=== PATIENT | female | born 1955 | race Caucasian/White ===

== ENCOUNTER 2020-11-20 12:25 | Inpatient (IN) ==
[2020-11-20] MEDS ORDERED: IOPAMIDOL 100 ML BOTTLE IV ONE (12:26)
[2020-11-20] MEDS ORDERED: PANTOPRAZOLE 40 MG VIAL IV ONE (12:41)
[2020-11-20] MEDS ORDERED: 0.9 % SODIUM CHLORIDE 1,000 ML IV ONE (12:42)
[2020-11-20 13:00] LABS: POC Blood Urea Nitrogen 23 mg/dL (6-20); POC CO2 32 mmol/L (22-30); POC Calcium, Ionized 1.16 mmEq/L (1.16-1.32); POC Chloride 98 mEq/L (96-108); POC Creatinine 0.8 mg/dL (0.6-1.2); POC Glucose, Random 119 mg/dL (70-105); POC Hematocrit < 15 % (36-48); POC Potassium 4.8 mEql/L (3.3-5.1); POC Sodium 137 mEq/L (133-145)
[2020-11-20] MEDS: HYDROmorphone 0.5 MG/0.5 ML SYRINGE IV PRN ×3 (13:06→14:25)
[2020-11-20 13:15] LABS: POC INR 1.6 (0.8-1.2); POC Pro Time 19.1 sec (11.9-14.5)
[2020-11-20] MEDS ORDERED: 0.9 % SODIUM CHLORIDE 250 ML IV SCH ×3 (13:15→22:14)
[2020-11-20] MEDS ORDERED: PANTOPRAZOLE 80 MG in 0.9 % SODIUM CHLORIDE 100 ML IV SCH ×2 (13:15→22:45)
[2020-11-20 13:51] LABS: Basophils # (Auto) 0.02 K/mcL (0.00-0.20); Basophils % (Auto) 0.2 % (0.0-2.0); Eosinophils # (Auto) 0.04 K/mcL (0.00-0.70); Eosinophils % (Auto) 0.3 % (0.0-7.0); Hematocrit 14.6 % (36.0-48.0); Hemoglobin 4.5 g/dL (12.0-15.0); Lymphocytes # (Auto) 1.33 K/mcL (1.50-4.80); Lymphocytes % (Auto) 10.2 % (15.0-49.0); Mean Cell Volume 96.7 fL (80.0-100.0); Mean Corpuscular HGB Conc 30.8 g/dL (31.0-36.0); Mean Platelet Volume 11.6 fL (7.4-10.4); Monocytes # (Auto) 0.85 K/mcL (0.10-0.90); Monocytes % (Auto) 6.5 % (1.0-12.0); Neutrophils % (Auto) 82.8 % (38.0-78.0); Platelet Count 344 K/mcL (140-440); RBC 1.51 M/mcL (4.00-5.20); WBC 13.1 K/mcL (4.5-11.0)
--- NOTE | 2020-11-20 13:55 | Emergency Department Note ---
GI Bleed HPI General Chief complaint: Rectal Bleed Stated complaint: dark stools, N/V Time Seen by Provider: 11/20/20 12:40 Source: patient Mode of arrival: wheelchair Limitations: no limitations History of Present Illness HPI Narrative: This is a 65-year-old female who presents to the emergency department today with weakness, low blood pressures and a 1-1/2-day history of bloody stools. She is currently on Eliquis for history of atrial fibrillation, and Plavix for a recent placement of a right renal artery stent at [facility] by Dr. 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 Her postoperative course was complicated by the development of a thoracic aortic aneurysm that required an endovascular stent placement at [facility] on 11/12/20, which was again done by Dr. Brandon Blair. She was discharged to home from [facility] on 11/17/2020. The patient is not a very good historian and so her presentation is discussed with her daughter by telephone. The patient has been having episodes of lightheadedness and dizziness over the last few days. She has also been complaining of thoracic back pain and side pain that was similar to her presentation with her dissection. Her daughter started seeing coffee-ground dark stools about a day and a half ago, and this morning via a digital radial sphygmometer her blood pressure on her right arm was 64/35 mmHg. For this reason she was brought in for evaluation. On presentation to the emergency room today she is Hemoccult positive. Her hematocrit is 15 and hemoglobin is 4.5. Her blood pressures are taken manually on her left arm and are 132/66 mmHg, and her right arm blood pressure is 142/56 mmHg. Her orthostatics are positive. Telemetry shows sinus bradycardia, and the patient is currently on 3.125 mg Coreg twice daily for her atrial fibrillation. An EKG shows sinus bradycardia with a rate of 59 bpm and no acute ischemic ST changes. A CTA of the chest abdomen and pelvis today shows no acute endoleak's. She does have a fairly significant left pleural effusion. Per chart review she had a thoracentesis on 11/16/2020 that was negative for all blood. She received 7 doses of Zosyn and was discharged on 5 days of Augmentin. I have called the the vascular surgeon, Dr. Rios, who is Dr. Blair's partner and discussed this case with him. He does not feel that this bleed is related to an endoleak or other concerning complications like endograft fistulization. He says this is unlikely given the location of the endograft. He states that the Plavix was started for her renal artery stent and notes that if she is to remain on Eliquis that this would be adequate anticoagulation. Related Data Home Medications Medication Instructions Recorded Confirmed amlodipine 10 mg PO QDAY 11/20/20 11/20/20 amoxicillin-pot clavulanate 1 tab PO BID 11/20/20 11/20/20 [Augmentin] apixaban 5 mg PO BID 11/20/20 11/20/20 carvedilol 3.125 mg PO BID 11/20/20 11/20/20 clopidogrel 75 mg PO QDAY 11/20/20 11/20/20 lisinopril 10 mg PO QDAY 11/20/20 11/20/20 Allergies Allergy/AdvReac Type Severity Reaction Status Date / Time Sulfa (Sulfonamide Allergy Unknown Hives Verified 11/20/20 12:32 Antibiotics) Review of Systems ROS ROS Narrative: Narrative: All systems ED: reviewed and negative except as stated. PFSH Narrative Patient History Narrative: Narrative: Medical/Surgical/Family History All Active Problems (Updated 11/20/20 @ 21:33 by Zuri Nunez PA-C) GIB (gastrointestinal bleeding) (Acute) Upper GI bleeding (Acute) Aortic dissection (Acute) Cholelithiasis (Chronic) Hydronephrosis (Chronic) History of hysterectomy (Chronic) Ureteral stone (Chronic) Vomiting (Chronic) Flank pain (Chronic) Medical History Cholelithiasis (Chronic) Flank pain (Chronic) Hydronephrosis (Chronic) Moderate left sided. 6mm Ureteral stone (Chronic) Vomiting (Chronic) Surgical History History of hysterectomy (Chronic) Family History Other No pertinent family history Social History Smoking Status: Former smoker Alcohol Intake Frequency: does not drink Substance Use: does not use Exam Narrative Narrative: General: AOx3, NAD, weak and ill-appearing. Cooperative and conversant. HEENT: PERRLA, EOMI, normocephalic. Dry mucous membranes. No carotid bruits to auscultation. Chest: Symmetric, no pain to palpation Respiratory: Diminished breath sounds with notable crackles to the right middle and lower lobes. No respiratory distress. Unlabored breathing. Heart: RRR, no M/C/R Abdomen: NT, ND, normal bowel tones. No organomegaly. Extremities: Warm and well perfused. No edema. DP 2+ bilaterally. Neuro: No focal deficits. Cranial nerves II-XII normal. Skin: Warm dry, no rashes or lesions, significant pallor. Psych: Normal mood and affect General Limitations: no limitations Course Course Course Narrative: 65-year-old female is admitted for GI bleed and acute blood loss anemia. Reevaluation(s) Reevaluation #1: Acute blood loss anemia secondary to GI bleed: She is being transfused 2 units of O- blood now, and a type and cross has been ordered and is pending. This case was discussed with the general surgeon on-call who recommends Kcentra for factor Xa reversal. He is also recommending GoLYTELY bowel prep, 4 L with n.p.o. after midnight for an upper and lower GI scope tomorrow. -Hold Plavix and Eliquis -Continue Protonix IV 40 mg every 12 hours -Give additional unit crossmatched PRBC -Kcentra ordered -Patient has been discussed with the hospitalist on service, Dr. Weston, and he has agreed to accept the patient with general surgery, Dr. Molina, consulting. Of note, vascular surgery [place] has been contacted and aware of this patient's admission. A CTA of the C/A/P shows no evidence of acute endoleak or graft visualization that could be leading to her acute blood loss anemia. Vital Signs Vital signs: Vital Signs Temperature 98.4 F 11/20/20 12:26 Pulse Rate 66 11/20/20 12:26 Respiratory Rate 14 11/20/20 12:26 Blood Pressure 110/39 11/20/20 12:26 Pulse Oximetry (%) 97 11/20/20 12:26 Temperature 97.8 F 11/20/20 21:21 Pulse Rate 76 12/21/20 21:21 Respiratory Rate 16 11/20/20 21:21 Blood Pressure 121/66 11/20/20 21:21 Pulse Oximetry (%) 98 11/20/20 21:21 [facility] MDM Narrative Medical decision making narrative: GI bleed: The patient has been signed out to the hospitalist service for admission, and general surgery is aware and consulting. -Please see reevaluation #1 above for further details regarding the plan of care. Lab Data Result diagrams: 11/20/20 19:58 11/20/20 12:58 Labs: Lab Results 11/20/20 11/20/20 11/20/20 Range/Units 12:45 12:45 12:46 WBC 13.1 H (4.5-11.0) K/mcL RBC 1.51 L (4.00-5.20) M/mcL Hgb 4.5 L* (12.0-15.0) g/dL Hct 14.6 L* (36.0-48.0) % POC Hct < 15 L* (36-48) % MCV 96.7 (80.0-100.0) fL MCH 29.8 (26.0-34.0) pg MCHC 30.8 L (31.0-36.0) g/dL RDW 15.0 H (11.5-14.5) % Plt Count 344 (140-440) K/mcL MPV 11.6 H (7.4-10.4) fL Neut % (Auto) 82.8 H (38.0-78.0) % Lymph % (Auto) 10.2 L (15.0-49.0) % [place] % (Auto) 6.5 (1.0-12.0) % Eos % (Auto) 0.3 (0.0-7.0) % Baso % (Auto) 0.2 (0.0-2.0) % Lymph # (Auto) 1.33 L (1.50-4.80) K/mcL [place] # (Auto) 0.85 (0.10-0.90) K/mcL Eos # (Auto) 0.04 (0.00-0.70) K/mcL Baso # (Auto) 0.02 (0.00-0.20) K/mcL Absolute Neutrophils 10.84 H (1.80-8.00) K/mcL POC PT 19.1 H (11.9-14.5) sec PT 24.1 H (11.9-14.5) sec POC INR 1.6 H (0.8-1.2) INR 2.1 H (0.9-1.1) VBG Lactic Acid (0.5-2.0) mmol/L POC Sodium 137 (133-145) mEq/L Sodium (133-145) mmol/L POC Potassium 4.8 (3.3-5.1) mEql/L Potassium (3.3-5.1) mmol/L POC Chloride 98 (96-108) mEq/L Chloride (96-108) mmol/L Carbon Dioxide (22-30) mmol/L POC Total CO2 32 H (22-30) mmol/L Anion Gap (8.0-16.0) POC BUN 23 H (6-20) mg/dL BUN (8-23) mg/dL Creatinine (0.6-1.1) mg/dL POC Creatinine 0.8 (0.6-1.2) mg/dL GFR Calculation Glucose (70-105) mg/dL POC Glucose 119 H (70-105) mg/dL Calcium (8.6-10.4) mg/dL POC WB Ioniz Calcium 1.16 (1.16-1.32) mmEq/L Total Bilirubin (0.1-1.0) mg/dL AST (<32) U/L ALT (<40) U/L Alkaline Phosphatase (39-117) U/L Total Protein (5.9-8.4) gm/dL Albumin (3.2-5.2) gm/dL Globulin (2.2-3.7) gm/dL Albumin/Globulin Ratio (1.0-2.3) 11/20/20 11/20/20 11/20/20 Range/Units 12:58 13:26 14:16 WBC (4.5-11.0) K/mcL RBC (4.00-5.20) M/mcL Hgb (12.0-15.0) g/dL Hct (36.0-48.0) % POC Hct 23 L (36-48) % MCV (80.0-100.0) fL MCH (26.0-34.0) pg MCHC (31.0-36.0) g/dL RDW (11.5-14.5) % Plt Count (140-440) K/mcL MPV (7.4-10.4) fL Neut % (Auto) (38.0-78.0) % Lymph % (Auto) (15.0-49.0) % [place] % (Auto) (1.0-12.0) % Eos % (Auto) (0.0-7.0) % Baso % (Auto) (0.0-2.0) % Lymph # (Auto) (1.50-4.80) K/mcL [place] # (Auto) (0.10-0.90) K/mcL Eos # (Auto) (0.00-0.70) K/mcL Baso # (Auto) (0.00-0.20) K/mcL Absolute Neutrophils (1.80-8.00) K/mcL POC PT (11.9-14.5) sec PT (11.9-14.5) sec POC INR (0.8-1.2) INR (0.9-1.1) VBG Lactic Acid 1.8 (0.5-2.0) mmol/L POC Sodium 138 (133-145) mEq/L Sodium 139 (133-145) mmol/L POC Potassium 4.7 (3.3-5.1) mEql/L Potassium 4.8 (3.3-5.1) mmol/L POC Chloride 102 (96-108) mEq/L Chloride 99 (96-108) mmol/L Carbon Dioxide 31 H (22-30) mmol/L POC Total CO2 32 H (22-30) mmol/L Anion Gap 9.0 (8.0-16.0) POC BUN 23 H (6-20) mg/dL BUN 23 (8-23) mg/dL Creatinine 0.7 (0.6-1.1) mg/dL POC Creatinine 0.6 (0.6-1.2) mg/dL GFR Calculation 90 Glucose 120 H (70-105) mg/dL POC Glucose 118 H (70-105) mg/dL Calcium 8.3 L (8.6-10.4) mg/dL POC WB Ioniz Calcium 1.07 L (1.16-1.32) mmEq/L Total Bilirubin 0.4 (0.1-1.0) mg/dL AST 33 H (<32) U/L ALT 31 (<40) U/L Alkaline Phosphatase 62 (39-117) U/L Total Protein 5.0 L (5.9-8.4) gm/dL Albumin 2.1 L (3.2-5.2) gm/dL Globulin 2.9 (2.2-3.7) gm/dL Albumin/Globulin Ratio 0.7 L (1.0-2.3) 11/20/20 11/20/20 11/20/20 Range/Units 19:57 19:58 19:58 WBC (4.5-11.0) K/mcL RBC (4.00-5.20) M/mcL Hgb (12.0-15.0) g/dL Hct 24.8 L (36.0-48.0) % POC Hct (36-48) % MCV (80.0-100.0) fL MCH (26.0-34.0) pg MCHC (31.0-36.0) g/dL RDW (11.5-14.5) % Plt Count (140-440) K/mcL MPV (7.4-10.4) fL Neut % (Auto) (38.0-78.0) % Lymph % (Auto) (15.0-49.0) % [place] % (Auto) (1.0-12.0) % Eos % (Auto) (0.0-7.0) % Baso % (Auto) (0.0-2.0) % Lymph # (Auto) (1.50-4.80) K/mcL [place] # (Auto) (0.10-0.90) K/mcL Eos # (Auto) (0.00-0.70) K/mcL Baso # (Auto) (0.00-0.20) K/mcL Absolute Neutrophils (1.80-8.00) K/mcL POC PT (11.9-14.5) sec PT 18.1 H (11.9-14.5) sec POC INR (0.8-1.2) INR 1.5 H (0.9-1.1) VBG Lactic Acid (0.5-2.0) mmol/L POC Sodium (133-145) mEq/L Sodium (133-145) mmol/L POC Potassium (3.3-5.1) mEql/L Potassium (3.3-5.1) mmol/L POC Chloride (96-108) mEq/L Chloride (96-108) mmol/L Carbon Dioxide (22-30) mmol/L POC Total CO2 (22-30) mmol/L Anion Gap (8.0-16.0) POC BUN (6-20) mg/dL BUN (8-23) mg/dL Creatinine (0.6-1.1) mg/dL POC Creatinine (0.6-1.2) mg/dL GFR Calculation Glucose (70-105) mg/dL POC Glucose (70-105) mg/dL Calcium 7.9 L (8.6-10.4) mg/dL POC WB Ioniz Calcium (1.16-1.32) mmEq/L Total Bilirubin (0.1-1.0) mg/dL AST (<32) U/L ALT (<40) U/L Alkaline Phosphatase (39-117) U/L Total Protein (5.9-8.4) gm/dL Albumin (3.2-5.2) gm/dL Globulin (2.2-3.7) gm/dL Albumin/Globulin Ratio (1.0-2.3) Discharge Plan Patient/Caregiver Discharge Instructions Pt seen by SALES OFFICER/PA only: Yes Clinical Impression: GIB (gastrointestinal bleeding) Patient Disposition: Xfer As Inpt ([facility]) Condition: Serious Discharge Date/Time: 11/20/20 20:10
[2020-11-20 14:08] LABS: ALT/SGPT 31 U/L (<40); AST/SGOT 33 U/L (<32); Albumin 2.1 gm/dL (3.2-5.2); Albumin/Globulin Ratio 0.7 (1.0-2.3); Alkaline Phosphatase 62 U/L (39-117); Bilirubin,Total 0.4 mg/dL (0.1-1.0); Blood Urea Nitrogen 23 mg/dL (8-23); Calcium 8.3 mg/dL (8.6-10.4); Carbon Dioxide 31 mmol/L (22-30); Chloride 99 mmol/L (96-108); Globulin 2.9 gm/dL (2.2-3.7); Glomerular Filtration Rate 90; Glucose 120 mg/dL (70-105)
--- NOTE | 2020-11-20 14:58 | Cat Scan Report ---
CLINICAL INFORMATION: History of type B dissection repair. Blood in stools. Nausea and vomiting COMPARISON: Preoperative CT thoracic/abdominal aortogram 11/12/2020 TECHNIQUE: 80 cc of Isovue-[id number] were injected intravenously and using SmartPrep to maximize arterial opacification, 0.625 helical slices were obtained throughout the entire thoracic and abdominal aorta and iliac arteries. Following reconstruction, 2.5-mm axial, sagittal, and coronal images were processed and reviewed. 3D volume rendered and CPR images were constructed on a independent workstation.The exam was performed using radiation dose optimization techniques including, but not limited to, automated exposure control, adjustment of the mA and/or kV according to patient size and use of iterative reconstruction technique. FINDINGS: Since the preprocedure chest CT one week prior, an endovascular graft has been placed into the descending and suprarenal abdominal aorta. It commences at the left subclavian artery origin and terminates above the renal artery orifices in the abdominal region. The false lumen of the type B dissection is thrombosed throughout nearly the entire descending thoracic segment. True and false lumen patency is maintained throughout the abdominal aorta with extension into the right common iliac artery - as previously seen. The aortic diameter in both the thoracic and abdominal region remains stable. The [place] descending thoracic aortic diameter is 5.4 cm. True lumen diameter 2.8 cm. The abdominal aortic diameter is 2.2 cm - as before. There is no evidence of periaortic hemorrhage.There is a small amount of contrast extending into the false lumen superior to the distal graft landing. This more likely represents persistent nonthrombosed false lumen rather than a graft leak. The ascending thoracic aorta, thoracic aortic arch and branches are normal. The branches of the abdominal aorta including the celiac, SMA, renal RADHAMES are all patent. Right renal artery stent was pre-existing and appears to be patent.. Mediastinal windows show the pulmonary arteries are well-opacified without embolus. Mild central pulmonary artery enlargement (4 cm) is suggestive of pulmonary hypertension. Delayed Heart is normal in size with minimal scattered calcific plaque. A few mildly enlarged lymph nodes and lower mediastinum are unchanged: They range up to 12 mm. Esophagus is grossly normal. 12 mm calcified nodule inferior left thyroid and 14 mm low-attenuation nodule mid right thyroid are unchanged from most recent CT. Moderate left pleural effusion resulting in compressive atelectasis of the posterior left lower lobe is unchanged. Small right pleural effusion has decreased. There is subsegmental atelectasis in the posterior left upper lobe. Abdominal images show an 18 mm cholesterol stone and the gallbladder with few other smaller stones. The gallbladder is, otherwise, normal. Common bile duct is mildly dilated - 12 mm. The liver, both kidneys, spleen and pancreas and left renal bladder normal. 3 cm benign adenoma right adrenal gland appreciated. There is no free air, free fluid or adenopathy. Pelvic images show hysterectomy and oophorectomy changes. Urinary bladder is normal. There are scattered sigmoid diverticuli but no evidence of diverticulitis. The remaining colon is unremarkable no evidence of GI pathology which may account for GI blood loss. Small bowel and stomach are grossly normal. IMPRESSION: 1. Endovascular graft has been satisfactorily placed in the descending thoracic and suprarenal abdominal aorta which successfully stents Wittman type B aortic dissection. The [place] aorta is stable diameter and there no evidence of periaortic hemorrhage. The graft ends above the termination of the dissection. The dissection continues throughout the abdominal aorta and right common iliac artery with both true and false lumens are patent. 2. Moderate left pleural effusion with subsegmental compressive atelectasis posterior left lower lobe no change. Small right pleural effusion decreased. 3. Cholelithiasis. Mild dilatation of the common bile duct no evidence of choledocholithiasis however 4. Sigmoid diverticulosis. No cause identified for GI blood loss. 5. 3.1 cm benign adenoma right adrenal gland. 6. Bilateral sacroiliitis. Please correlate with arthritic serologies to evaluate seronegative arthropathies 7. 14 mm low-attenuation nodule right thyroid lobe. 12 mm peripherally calcified nodule left thyroid lobe. Consider thyroid ultrasound Interpreted and Authenticated by: Pato Murphy 11/20/20
[2020-11-20 15:21] LABS: INR 2.1 (0.9-1.1); Prothrombin Time 24.1 sec (11.9-14.5)
[2020-11-20] MEDS ORDERED: [UNRECOGNIZED DRUG - OTHER] IV ONE (16:04)
[2020-11-20] MEDS ORDERED: HUM PROTHROMBIN CPLX IV ONE ×2 (16:04→17:30)
[2020-11-20 16:32] LABS: POC Blood Urea Nitrogen 23 mg/dL (6-20); POC CO2 32 mmol/L (22-30); POC Calcium, Ionized 1.07 mmEq/L (1.16-1.32); POC Chloride 102 mEq/L (96-108); POC Creatinine 0.6 mg/dL (0.6-1.2); POC Glucose, Random 118 mg/dL (70-105); POC Hematocrit 23 % (36-48); POC Potassium 4.7 mEql/L (3.3-5.1); POC Sodium 138 mEq/L (133-145)
[2020-11-20] MEDS ORDERED: PEG 3350/NA SULF,BICARB,CL/KCL 4,000 ML ORAL.SOL PO ONE (17:03)
--- NOTE | 2020-11-20 17:18 | Internal Med History&Physical ---
HPI History of Present Illness Patient information: Note initiated : 11/20/20 at 5:02 pm Service Date, if different from initiated Date: [] Patient: Lissa Simmons a 65 y/o F admitted on for dark stools, N/V. Chief Complaint: [] History of present illness: Ms. Simmons is a 65 year old F Presents the ED with bloody stools weak lightheaded. Patient's history is notable for a type B aortic dissection and was admitted to [facility] on November 03. She was found during that to have new onset A. fib RVR and was started on AV nikhil blockers as well as Eliquis. She was discharged on the and then presented. To [facility] on for left upper quadrant pain and CT imaging revealed a Demarco B descending thoracic aortic dissection and aneurysm without rupture. She was flown back up to [facility] she received an endovascular repair As well as a renal artery stent and was started on Plavix. Did develop a pleural effusion on the left which was drained at a prior from her discharge at [facility] and was shown to be just blood-tinged. Discharge on Friday the . She was also evaluated for obstructive sleep apnea and also started on inhalers for COPD. She says of the weekend she was doing fine and woke up feeling okay today, Friday. However she started having dark stools 3-4 and then gradually became sick lightheaded and significantly weak. Presenting in the ED her blood pressure systolic was 92/50. She had a hemog lobin of 4.5. She had guaiac positive stools. She was given 2 units of O- blood, and currently receiving third unit after type and cross. CTA of the chest abdomen pelvis revealed intact surgical repairs of dissection. No leaking. Case discussed with vascular surgeon who stated the Plavix was started after the renal stent and if she needs to go back on anticoagulation for the A. fib, Eliquis will be fine alone without Plavix. Case discussed with general surgeon who performed endoscopy upper and lower in the morning. Review of Systems: Pertinent positives as above. Denies headache/fever/ chills/nausea/vomiting/abdominal pain/cough/dyspnea. Remaining 10 point review of system reviewed negative PFSH PFSH All Active Problems (Updated 11/12/20 @ 17:20 by Dionisio Quigley MD) Aortic dissection (Acute) Cholelithiasis (Chronic) Hydronephrosis (Chronic) History of hysterectomy (Chronic) Ureteral stone (Chronic) Vomiting (Chronic) Flank pain (Chronic) Medical History (Updated 11/12/20 @ 17:20 by Dionisio Quigley MD) Cholelithiasis (Chronic) Flank pain (Chronic) Hydronephrosis (Chronic) Moderate left sided. 6mm Ureteral stone (Chronic) Vomiting (Chronic) Surgical History History of hysterectomy (Chronic) Family History Other No pertinent family history Social History (Updated 06/30/20 @ 09:18 by Mihaela Coelho, THIAGO) smoking status: Former smoker alcohol intake frequency: does not drink substance use type: does not use MEDS/ALLERGIES Home Medications and Allergies Home Medications Medication Instructions Recorded Confirmed Type amlodipine 10 mg PO QDAY 11/20/20 11/20/20 History amoxicillin-pot clavulanate 1 tab PO BID 11/20/20 11/20/20 History [Augmentin] apixaban 5 mg PO BID 11/20/20 11/20/20 History carvedilol 3.125 mg PO BID 11/20/20 11/20/20 History clopidogrel 75 mg PO QDAY 11/20/20 11/20/20 History lisinopril 10 mg PO QDAY 11/20/20 11/20/20 History Allergies Allergy/AdvReac Type Severity Reaction Status Date / Time Sulfa (Sulfonamide Allergy Unknown Hives Verified 11/20/20 12:32 Antibiotics) EXAM Constitutional Vitals: Temp Pulse Resp BP Pulse Ox 98.4 F 58 L 17 116/55 95 11/20/20 12:26 11/20/20 15:48 11/20/20 15:48 11/20/20 15:48 11/20/20 15:48 Exam: General: Alert, Awake, No acute Distress, obese Eyes/N/T: EOMI, PERRL, dry MM Head/Neck: neck supple, normocephalic atraumatic CV: RRR, No murmurs, normal s1/s2 Pulm: Clear b/l, no wheezing/rhonchi/rales Abd: soft, nontender, +BS x4 Ext: no clubbing/cyanosis, b/l LE 1+ Neuro: Alert, no focal deficits, moves all extremities, CN 2-12 grossly intact, symmetrical strength b/l upper/lower, sensations intact b/l upper/lower Skin: warm/dry DATA Data Completed and Pending Labs: Labs from last 24 hours 11/20/20 11/20/20 11/20/20 14:16 13:26 12:58 WBC RBC Hgb Hct POC Hct 23 L MCV MCH MCHC RDW Plt Count MPV Neut % (Auto) Lymph % (Auto) [place] % (Auto) Eos % (Auto) Baso % (Auto) Lymph # (Auto) [place] # (Auto) Eos # (Auto) Baso # (Auto) Absolute Neutrophils POC PT PT POC INR INR VBG Lactic Acid 1.8 POC Sodium 138 Sodium 139 POC Potassium 4.7 Potassium 4.8 POC Chloride 102 Chloride 99 Carbon Dioxide 31 H POC Total CO2 32 H Anion Gap 9.0 POC BUN 23 H BUN 23 Creatinine 0.7 POC Creatinine 0.6 GFR Calculation 90 Glucose 120 H POC Glucose 118 H Calcium 8.3 L POC WB Ioniz Calcium 1.07 L Total Bilirubin 0.4 AST 33 H ALT 31 Alkaline Phosphatase 62 Total Protein 5.0 L Albumin 2.1 L Globulin 2.9 Albumin/Globulin Ratio 0.7 L 11/20/20 11/20/20 11/20/20 12:46 12:45 12:45 WBC 13.1 H RBC 1.51 L Hgb 4.5 L* Hct 14.6 L* POC Hct < 15 L* MCV 96.7 MCH 29.8 MCHC 30.8 L RDW 15.0 H Plt Count 344 MPV 11.6 H Neut % (Auto) 82.8 H Lymph % (Auto) 10.2 L [place] % (Auto) 6.5 Eos % (Auto) 0.3 Baso % (Auto) 0.2 Lymph # (Auto) 1.33 L [place] # (Auto) 0.85 Eos # (Auto) 0.04 Baso # (Auto) 0.02 Absolute Neutrophils 10.84 H POC PT 19.1 H PT 24.1 H POC INR 1.6 H INR 2.1 H VBG Lactic Acid POC Sodium 137 Sodium POC Potassium 4.8 Potassium POC Chloride 98 Chloride Carbon Dioxide POC Total CO2 32 H Anion Gap POC BUN 23 H BUN Creatinine POC Creatinine 0.8 GFR Calculation Glucose POC Glucose 119 H Calcium POC WB Ioniz Calcium 1.16 Total Bilirubin AST ALT Alkaline Phosphatase Total Protein Albumin Globulin Albumin/Globulin Ratio A/P Narrative A/P Narrative: A: *GI bleed: -hemodynamically stable did have SBP in low 90's on arrival but has been 120's since *Acute blood loss anemia: -4 PRBC (11/20) *Recent aortic dissection and aneurysm repair and renal artery stent: treated at [facility] -case discussed with vascular surgeon from ED -CTA c/a/p intact, no leak or complication *PAF: on eliquis/BB *Left pleural effusion: drained onced at [facility] [place], only blood-tinged at the time *TAVARES: need bipap, working on outpt *COPD: *Tobacco abuse: *HTN: *Obesity: * P: -transfuse one more unit -serial H&H -Hold Eliquis and Plavix, per vascular surgeon, does not need to go back on plavix -Gen Surgeon for endoscopy -ppi bid -hold home norvasc/ACEI for low BP, cont BB given improvement in BP -nocturnal bipap - -pt/ot -Smoking cessation counseling -ppx: SCD full code Time Spent With Patient Time: Total time spent is greater than 50% in coordination of care (as documented) at patient's floor/unit and/or counseling patient:
[2020-11-20] MEDS ORDERED: EMPTYBAG IV ONE (17:30)
[2020-11-20] MEDS ORDERED: [UNRECOGNIZED DRUG - OTHER] IV ONE (17:30)
[2020-11-20] MEDS ORDERED: ONDANSETRON 4 MG/2 ML VIAL IV ONE (19:01)
[2020-11-20] MEDS ORDERED: ONDANSETRON 4 MG/2 ML VIAL ONE ×2 (19:10→20:15)
--- NOTE | 2020-11-20 19:41 | General Surgery Consult Note ---
HPI Data of Consult Consult date: 11/20/20 Primary Care Provider: KIESHA Polanco Consult Narrative Chief complaint: GI Bleed Reason for consult: GI Bleed History of present illness: 65 yo woman with 50 packyr history of smoking, COPD, HTN, and recently diagnosed afib s/p recent endovascular repair of descending thoracic and suprarenal abdominal aortic dissection and aneurysm, in addition she had a reportedly R renal sent placed some 10days ago. Due to the Afib and renal stenting pt was recently started on apixaban 5 mg and clopidogrel 75. She last took her medicines this morning. 2 days ago pt began having numerous dark melanotic stools and feeling poorly. She felt lightheaded today and called EMS. Of note: pt denies any liver disease. She drinks only rarely, no prior heavy use, no hx of hepatitis. BMI of 34 risks NAFL ER: In ED on BB no tackycardia, gorna BP 91/43. appered ill. Hb 4.5. Plt 344. INR 2.1. Multiple BMs dark stool with guiac +, Recieved 4 units PRBC, as well as dose of 4 factor PCC to reverse coagulopathy. Upon my exam - pt seen to vomit ~300ml of gastric fluid containing obveous bright red blood. CT scan showed no aortoenteric fistula and graft repair well positioned Per documented discussion in ED notes vascular surgeon OK with therapeutic anticoag OR antiplt - does not need both. cc:: CC: Constitutional Constitutional: Present anorexia, fatigue and malaise; Absent increased appetite EENT Eyes: Absent change in vision Ears: Absent ear discharge Nose, mouth and throat: Absent neck mass Cardiovascular Cardiovascular: Absent rapid heart rate Respiratory Respiratory: Present cough Gastrointestinal Gastrointestinal: Present hematemesis and loose stools Musculoskeletal Musculoskeletal: Present back pain Integumentary Integumentary: Absent acne Neurological Neurological: Present dizziness Psychiatric Psychiatric: Absent auditory hallucinations Endocrine Endocrine: Absent flushing PFSH PFSH All Active Problems (Updated 11/20/20 @ 20:08 by Zack Santos MD) Upper GI bleeding (Acute) Aortic dissection (Acute) Cholelithiasis (Chronic) Hydronephrosis (Chronic) History of hysterectomy (Chronic) Ureteral stone (Chronic) Vomiting (Chronic) Flank pain (Chronic) Medical History Cholelithiasis (Chronic) Flank pain (Chronic) Hydronephrosis (Chronic) Moderate left sided. 6mm Ureteral stone (Chronic) Vomiting (Chronic) Surgical History History of hysterectomy (Chronic) Family History Other No pertinent family history Social History (Updated 06/30/20 @ 09:18 by Mihaela Coelho RN) smoking status: Former smoker alcohol intake frequency: does not drink substance use type: does not use MEDS/ALLERGIES Home Medications and Allergies Home Medications Medication Instructions Recorded Confirmed Type amlodipine 10 mg PO QDAY 11/20/20 11/20/20 History amoxicillin-pot clavulanate 1 tab PO BID 11/20/20 11/20/20 History [Augmentin] apixaban 5 mg PO BID 11/20/20 11/20/20 History carvedilol 3.125 mg PO BID 11/20/20 11/20/20 History clopidogrel 75 mg PO QDAY 11/20/20 11/20/20 History lisinopril 10 mg PO QDAY 11/20/20 11/20/20 History Allergies Allergy/AdvReac Type Severity Reaction Status Date / Time Sulfa (Sulfonamide Allergy Unknown Hives Verified 11/20/20 12:32 Antibiotics) Physical Examination Vital Signs Vital signs: Temp Pulse Resp BP Pulse Ox 36.9 C 54 L 15 142/60 100 11/20/20 12:26 11/20/20 18:47 11/20/20 18:55 11/20/20 18:47 11/20/20 18:47 General physical appearance General physical exam: other (BMI 34) Eyes Eye exam: PERRL ENT ENT exam: normal nares Head Head exam IM: Present atraumatic and normocephalic Neck Neck exam: trachea midline and no lymphadenopathy Cardiovascular Cardiovascular: RRR no MGR Respiratory Respiratory exam: other (very distant breathsounds) Abdomen Abdomen: Present soft (Low midline incision, rotund, dull to percussion, no HSM, BS rare. Mild tenderness over epigastrium no peritoneal signs) Integumentary Integumentary: Present no rash Neurologic Neurologic: Present normal coordination Musculoskeletal Musculoskeletal: Present normal posture Psychiatric Psychiatric: Present oriented to time, oriented to person and oriented to place Results Labs Result diagrams: 11/20/20 12:45 11/20/20 12:58 Labs: Abnormal lab results 11/20/20 11/20/20 12 Range/Units 12:45 12:45 12:46 WBC 13.1 H (4.5-11.0) K/mcL RBC 1.51 L (4.00-5.20) M/mcL Hgb 4.5 L* (12.0-15.0) g/dL Hct 14.6 L* (36.0-48.0) % POC Hct < 15 L* (36-48) % MCHC 30.8 L (31.0-36.0) g/dL RDW 15.0 H (11.5-14.5) % MPV 11.6 H (7.4-10.4) fL Neut % (Auto) 82.8 H (38.0-78.0) % Lymph % (Auto) 10.2 L (15.0-49.0) % Lymph # (Auto) 1.33 L (1.50-4.80) K/mcL Absolute Neutrophils 10.84 H (1.80-8.00) K/mcL POC PT 19.1 H (11.9-14.5) sec PT 24.1 H (11.9-14.5) sec POC INR 1.6 H (0.8-1.2) INR 2.1 H (0.9-1.1) Carbon Dioxide (22-30) mmol/L POC Total CO2 32 H (22-30) mmol/L POC BUN 23 H (6-20) mg/dL Glucose (70-105) mg/dL POC Glucose 119 H (70-105) mg/dL Calcium (8.6-10.4) mg/dL POC WB Ioniz Calcium (1.16-1.32) mmEq/L AST (<32) U/L Total Protein (5.9-8.4) gm/dL Albumin (3.2-5.2) gm/dL Albumin/Globulin Ratio (1.0-2.3) 11/20/20 11/20/20 Range/Units 12:58 14:16 WBC (4.5-11.0) K/mcL RBC (4.00-5.20) M/mcL Hgb (12.0-15.0) g/dL Hct (36.0-48.0) % POC Hct 23 L (36-48) % MCHC (31.0-36.0) g/dL RDW (11.5-14.5) % MPV (7.4-10.4) fL Neut % (Auto) (38.0-78.0) % Lymph % (Auto) (15.0-49.0) % Lymph # (Auto) (1.50-4.80) K/mcL Absolute Neutrophils (1.80-8.00) K/mcL POC PT (11.9-14.5) sec PT (11.9-14.5) sec POC INR (0.8-1.2) INR (0.9-1.1) Carbon Dioxide 31 H (22-30) mmol/L POC Total CO2 32 H (22-30) mmol/L POC BUN 23 H (6-20) mg/dL Glucose 120 H (70-105) mg/dL POC Glucose 118 H (70-105) mg/dL Calcium 8.3 L (8.6-10.4) mg/dL POC WB Ioniz Calcium 1.07 L (1.16-1.32) mmEq/L AST 33 H (<32) U/L Total Protein 5.0 L (5.9-8.4) gm/dL Albumin 2.1 L (3.2-5.2) gm/dL Albumin/Globulin Ratio 0.7 L (1.0-2.3) Diabetes panel 11/20/20 Range/Units 12:58 Sodium 139 (133-145) mmol/L Potassium 4.8 (3.3-5.1) mmol/L Chloride 99 (96-108) mmol/L Carbon Dioxide 31 H (22-30) mmol/L BUN 23 (8-23) mg/dL Creatinine 0.7 (0.6-1.1) mg/dL Glucose 120 H (70-105) mg/dL Calcium 8.3 L (8.6-10.4) mg/dL AST 33 H (<32) U/L ALT 31 (<40) U/L Alkaline Phosphatase 62 (39-117) U/L Total Protein 5.0 L (5.9-8.4) gm/dL Albumin 2.1 L (3.2-5.2) gm/dL Calcium panel 11/20/20 Range/Units 12:58 Calcium 8.3 L (8.6-10.4) mg/dL Albumin 2.1 L (3.2-5.2) gm/dL Pituitary panel 11/20/20 Range/Units 12:58 Sodium 139 (133-145) mmol/L Potassium 4.8 (3.3-5.1) mmol/L Chloride 99 (96-108) mmol/L Carbon Dioxide 31 H (22-30) mmol/L BUN 23 (8-23) mg/dL Creatinine 0.7 (0.6-1.1) mg/dL Glucose 120 H (70-105) mg/dL Calcium 8.3 L (8.6-10.4) mg/dL Adrenal panel 11/20/20 Range/Units 12:58 Sodium 139 (133-145) mmol/L Potassium 4.8 (3.3-5.1) mmol/L Chloride 99 (96-108) mmol/L Carbon Dioxide 31 H (22-30) mmol/L BUN 23 (8-23) mg/dL Creatinine 0.7 (0.6-1.1) mg/dL Glucose 120 H (70-105) mg/dL Calcium 8.3 L (8.6-10.4) mg/dL Total Bilirubin 0.4 (0.1-1.0) mg/dL AST 33 H (<32) U/L ALT 31 (<40) U/L Alkaline Phosphatase 62 (39-117) U/L Total Protein 5.0 L (5.9-8.4) gm/dL Albumin 2.1 L (3.2-5.2) gm/dL All other labs normal. A/P Assessment and plan (1) Upper GI bleeding: Status: Acute Comment: 65 yo unwell woman with significant smoking history now with UGIB as evidence by melanotic stools and hematemesis and presenting Hb of 4.5 on apixaban + clopidogrel after recent dx of afib and aortic repair. She is now hemodynamically normal and making urine after 4 units PRBC and 4 Factor PCC. Given ongoing hematemesis, and epigastric tenderness - I suspect she has bleeding PUD though other etiologies remain. Other than obesity no risk factors for variceal bleeding. Plan: Endoscopy tonight On PPI gtt Agree with blood product resus Stat repeat of H/H, Calcium, IRN Hold antiplt and anticoag Risks of endoscopic injury, worsening of bleeding, inability to control bleeding add discussed All questions answered Pt ready to proceed Zack Santos - General surgery Time Spent With Patient Time: Total time spent is greater than 50% in coordination of care (as documented) at patient's floor/unit and/or counseling patient:
[2020-11-20] MEDS ORDERED: LIDOCAINE HCL/PF 100 MG/5 ML SYRINGE IV ONE (20:15)
[2020-11-20] MEDS ORDERED: ePHEDrine 50 MG/ML AMPUL IV ONE (20:15)
[2020-11-20] MEDS ORDERED: PHENYLEPHRINE 10 MG/ML VIAL ONE (20:15)
[2020-11-20] MEDS ORDERED: SUCCINYLCHOLINE 20 MG/ML ML IV ONE (20:15)
[2020-11-20] MEDS ORDERED: ROCURONIUM 10 MG/ML ML IV ONE (20:15)
[2020-11-20] MEDS ORDERED: SUGAMMADEX SODIUM 200 MG/2 ML VIAL IV ONE (20:15)
[2020-11-20] MEDS ORDERED: DEXAMETHASONE 10 MG/ML VIAL ONE (20:15)
[2020-11-20] MEDS ORDERED: fentaNYL 250 MCG/5 ML VIAL IV ONE (20:15)
[2020-11-20] MEDS ORDERED: GLYCOPYRROLATE 0.2 MG/ML VIAL IV ONE (20:15)
[2020-11-20] MEDS ORDERED: KETAMINE 100 MG/ML ML ONE (20:15)
[2020-11-20] MEDS ORDERED: PROPOFOL 200 MG/20 ML VIAL IV ONE (20:15)
[2020-11-20] MEDS ORDERED: KETAMINE HCL 50 MG/ML ML IV PRN (20:17)
[2020-11-20] MEDS ORDERED: EPINEPHrine 1 MG/ML AMPUL ONE ×2 (20:25→21:53)
[2020-11-20] MEDS ORDERED: PROPOFOL 200 MG/20 ML VIAL IV SCH (20:30)
[2020-11-20] MEDS ORDERED: SIMETHICONE 40 MG/0.6 ML ML PO ONE (20:33)
[2020-11-20 20:47] LABS: Calcium 7.9 mg/dL (8.6-10.4)
[2020-11-20 21:03] LABS: INR 1.5 (0.9-1.1); Prothrombin Time 18.1 sec (11.9-14.5)
[2020-11-20] MEDS ORDERED: EPINEPHrine 1 MG/ML AMPUL IJ ONE (21:05)
--- NOTE | 2020-11-20 21:18 | Brief Operative Note ---
Brief Operative Note Date of procedure: 11/20/20 Pre-op diagnosis: UGIB Post-op diagnosis: other (Bleeding duodenal mass) Procedure: EGD, control of duodenal hemorrhage with submucosal injection of epi and application of endoscopic clip Grafts/Implants: No Findings: 1) large amount of blood and adherent clot in antrum and duodenum 2) actively bleeding polypoid duodenal mass, in 1st part of duodenum, site biopsied 3) adjacent mucosa injected with 30ml of 1mg/10ml of epi, Clip applied to active bleeding site - no bleeding at end of case 4) No esophageal varices Complications: none Surgeon: Zack Santos Estimated blood loss (cc): 15 Specimens Removed/Pathology: other (duodenal mass) Condition: stable Disposition: ICU
[2020-11-20] MEDS ORDERED: IPRATROPIUM/ALBUTEROL 3 ML AMPUL.NEB NEB PRN ×2 (21:25→22:14)
[2020-11-20] MEDS ORDERED: LACTATED RINGERS 250 ML IV PRN (21:25)
[2020-11-20] MEDS ORDERED: BENZOCAINE/MENTHOL 1 LOZENGE PO PRN (21:25)
[2020-11-20] MEDS ORDERED: METOCLOPRAMIDE 10 MG/2 ML VIAL IV PRN (21:25)
[2020-11-20] MEDS ORDERED: fentaNYL 100 MCG/2 ML VIAL IV PRN (21:25)
[2020-11-20] MEDS ORDERED: NALOXONE HCL 0.4 MG/ML VIAL IV PRN (21:25)
[2020-11-20] MEDS ORDERED: ACETAMINOPHEN 1,000 MG/100 ML BAG IV ONE (21:25)
[2020-11-20] MEDS ORDERED: LACTATED RINGERS 1,000 ML IV SCH (21:30)
[2020-11-20] MEDS ORDERED: POTASSIUM CHLORIDE 20 MEQ TABLET PO PRN ×2 (22:14)
[2020-11-20] MEDS ORDERED: POTASSIUM CHLORIDE 40 MEQ in DEXTROSE 5% IN WATER 500 ML IV PRN (22:14)
[2020-11-20] MEDS ORDERED: ONDANSETRON 4 MG/2 ML VIAL IV PRN (22:14)
[2020-11-20] MEDS ORDERED: MAGNESIUM SULFATE 2 GM/50 ML BAG IV PRN (22:14)
[2020-11-20] MEDS ORDERED: ACETAMINOPHEN 325 MG TABLET PO PRN (22:14)
[2020-11-20] MEDS ORDERED: CARVEDILOL 3.125 MG TABLET PO SCH (22:14)
[2020-11-20] MEDS ORDERED: PANTOPRAZOLE 40 MG VIAL IV SCH (22:14)
[2020-11-20] MEDS: 0.9 % SODIUM CHLORIDE 250 ML IV SCH (23:13)
[2020-11-20] MEDS: 0.9 % SODIUM CHLORIDE 10 ML SYRINGE IV SCH (23:32)
[2020-11-20] MEDS ORDERED: CARVEDILOL 6.25 MG TABLET ONE (23:33)
[2020-11-20 23:55] LABS: Calcium 7.7 mg/dL (8.6-10.4)
[2020-11-21] MEDS ORDERED: PANTOPRAZOLE 40 MG VIAL IV ONE (00:04)
[2020-11-21 00:05] LABS: INR 1.4 (0.9-1.1); Prothrombin Time 17.1 sec (11.9-14.5)
[2020-11-21] MEDS: 0.9 % SODIUM CHLORIDE 250 ML IV SCH (03:45)
[2020-11-21] MEDS ORDERED: 0.9 % SODIUM CHLORIDE 250 ML IV SCH (03:45)
[2020-11-21 05:05] LABS: Hematocrit 25.4 % (36.0-48.0); Hemoglobin 8.3 g/dL (12.0-15.0)
[2020-11-21] MEDS: 0.9 % SODIUM CHLORIDE 10 ML SYRINGE IV SCH ×4 (06:03→20:00)
[2020-11-21 06:42] LABS: Basophils # (Auto) 0.02 K/mcL (0.00-0.20); Basophils % (Auto) 0.1 % (0.0-2.0); Eosinophils # (Auto) 0 K/mcL (0.00-0.70); Eosinophils % (Auto) 0 % (0.0-7.0); Hematocrit 25.3 % (36.0-48.0); Hemoglobin 8.2 g/dL (12.0-15.0); Lymphocytes # (Auto) 0.74 K/mcL (1.50-4.80); Lymphocytes % (Auto) 4.2 % (15.0-49.0); Mean Cell Volume 93.4 fL (80.0-100.0); Mean Corpuscular HGB Conc 32.4 g/dL (31.0-36.0); Mean Platelet Volume 11.4 fL (7.4-10.4); Monocytes # (Auto) 0.28 K/mcL (0.10-0.90); Monocytes % (Auto) 1.6 % (1.0-12.0); Neutrophils % (Auto) 94.1 % (38.0-78.0); Platelet Count 286 K/mcL (140-440); RBC 2.71 M/mcL (4.00-5.20); Red Cell Distribution Width 15.5 % (11.5-14.5); WBC 17.6 K/mcL (4.5-11.0)
[2020-11-21 07:06] LABS: ALT/SGPT 65 U/L (<40); AST/SGOT 67 U/L (<32); Albumin 2.4 gm/dL (3.2-5.2); Albumin/Globulin Ratio 0.8 (1.0-2.3); Alkaline Phosphatase 62 U/L (39-117); Bilirubin,Direct < 0.2 mg/dL (<0.3); Bilirubin,Total 0.8 mg/dL (0.1-1.0); Blood Urea Nitrogen 17 mg/dL (8-23); Calcium 7.9 mg/dL (8.6-10.4); Carbon Dioxide 30 mmol/L (22-30); Chloride 101 mmol/L (96-108); Glomerular Filtration Rate 90; Glucose 174 mg/dL (70-105); Lactate Dehydrogenase 315 U/L (135-225); Phosphorous 2.5 mg/dL (2.5-4.5); Triglycerides 81 mg/dL (<150); Uric Acid 4.2 mg/dL (2.5-8.0)
--- NOTE | 2020-11-21 07:32 | Internal Med Progress Note ---
SUBJECTIVE Subjective Patient information: Note initiated : 11/21/20 at 7:29 am Service Date, if different from initiated Date: [] Patient: Lissa Simmons a 65 y/o F admitted on 11/20/20 for dark stools, N/V. Chief Complaint: [] Interval history: History of present illness: Ms. Simmons is a 65 year old F Presents the ED with bloody stools weak lightheaded. Patient's history is notable for a type B aortic dissection and was admitted to [facility] on November 03. She was found during that to have new onset A. fib RVR and was started on AV nikhil blockers as well as Eliquis. She was discharged on the and then presented. To [facility] on for left upper quadrant pain and CT imaging revealed a [place] B descending thoracic aortic dissection and aneurysm without rupture. She was flown back up to [place] she received an endovascular repair As well as a renal artery stent and was started on Plavix. Did develop a pleural effusion on the left which was drained at a prior from her discharge at [facility] and was shown to be just blood-tinged. Discharge on Friday the . She was also evaluated for obstructive sleep apnea and also started on inhalers for COPD. She says of the weekend she was doing fine and woke up feeling okay today, Friday. However she started having dark stools 3-4 and then gradually became si ck lightheaded and significantly weak. Presenting in the ED her blood pressure systolic was 92/50. She had a hemoglobin of 4.5. She had guaiac positive stools. She was given 2 units of O- blood, and currently receiving third unit after type and cross. CTA of the chest abdomen pelvis revealed intact surgical repairs of dissection. No leaking. Case discussed with vascular surgeon who stated the Plavix was started after the renal stent and if she needs to go back on anticoagulation for the A. fib, Eliquis will be fine alone without Plavix. Case discussed with general surgeon who performed endoscopy upper and lower in the morning. 11/21 Feeling less weak today. Patient had EGD with a polypoid mass found in the duodenum which was treated and clipped. H&H stable. Review of Systems: denies headache/fever/chills/nausea/vomiting/chest or abdominal pain/cough/dyspnea. Otherwise see above. Constitutional Vitals: Vital Signs Temp Pulse Resp BP Pulse Ox 98.8 F 57 L 18 139/79 93 11/21/20 05:33 11/21/20 05:31 11/21/20 06:01 11/21/20 06:01 11/21/20 06:01 Period Temp Pulse Resp BP Sys/Brantley Pulse Ox Last 24 Hr 97.3 F-98.8 F 44-117 12-25 78-150/39-113 87-100 Intake and Output 11/20/20 11/21/20 11/21/20 21:59 05:59 13:59 Intake Total 3795 200 480 Balance 3795 200 480 Weight 90.718 kg Intake & Output: Intake & Output 11/20/20 11/21/20 11/21/20 21:59 05:59 13:59 Intake Total 3795 200 480 Balance 3795 200 480 Weight 90.718 kg Intake: IV 1120 200 Sodium Chloride 0.9% 1,000 ml @ 1000 Wide Open IV BOLUS ONE Rx#: [id number] Sodium Chloride 0.9% 250 ml @ 40 20 mls/hr IV .[id number] [facility] Rx#: [id number] Kcentra 1 Unit 2,064 Unit In 80 Emptybag 80 ml @ 500 mls/hr IV ONCE ONE Rx#:[id number] Protonix 80 mg In Sodium 100 Chloride 0.9% 100 ml @ 8 MG/HR 10 mls/hr IV Q10H [facility] Rx#: [id number] Oral 480 Blood Product 975 IV - Manual Only 1700 Other: Urine Appearance Clear Urine Color Dark Yellow Urine Odor Normal Stool Size Small Stool Color Dark Red Blood Stool Consistency Watery # Voids 1 # Bowel Movements 1 Exam: General: Alert, Awake, No acute Distress, obese Eyes/N/T: EOMI, Head/Neck: neck supple, CV: RRR, No murmurs, Pulm: Clear b/l, no wheezing/rhonchi/rales Abd: soft, nontender, +BS x4 Ext: no clubbing/cyanosis, b/l LE 1+ Neuro: Alert, no focal deficits, moves all extremities, Skin: warm/dry OBJ DATA Labs CBC & Chem 7: 11/21/20 05:02 11/21/20 05:02 Labs: Abnormal Lab Results 11/21/20 11/21/20 11/21/20 05:02 05:02 03:00 WBC 17.6 H RBC 2.71 L Hgb 8.2 L 8.3 L Hct 25.3 L 25.4 L POC Hct MCHC RDW 15.5 H MPV 11.4 H Neut % (Auto) 94.1 H Lymph % (Auto) 4.2 L Lymph # (Auto) 0.74 L Absolute Neutrophils 16.60 H POC PT PT POC INR INR Carbon Dioxide POC Total CO2 POC BUN Glucose 174 H POC Glucose Calcium 7.9 L POC WB Ioniz Calcium AST 67 H ALT 65 H Lactate Dehydrogenase 315 H Total Protein 5.4 L Albumin 2.4 L Albumin/Globulin Ratio 0.8 L 11/20/20 11/20/20 11/20/20 23:00 23:00 23:00 WBC RBC Hgb 8.4 L Hct POC Hct MCHC RDW MPV Neut % (Auto) Lymph % (Auto) Lymph # (Auto) Absolute Neutrophils POC PT PT 17.1 H POC INR INR 1.4 H Carbon Dioxide POC Total CO2 POC BUN Glucose POC Glucose Calcium 7.7 L POC WB Ioniz Calcium AST ALT Lactate Dehydrogenase Total Protein Albumin Albumin/Globulin Ratio 11/20/20 11/20/20 11/20/20 23:00 19:58 19:58 WBC RBC Hgb Hct 25.6 L 24.8 L POC Hct MCHC RDW MPV Neut % (Auto) Lymph % (Auto) Lymph # (Auto) Absolute Neutrophils POC PT PT 18.1 H POC INR INR 1.5 H Carbon Dioxide POC Total CO2 POC BUN Glucose POC Glucose Calcium POC WB Ioniz Calcium AST ALT Lactate Dehydrogenase Total Protein Albumin Albumin/Globulin Ratio 11/20/20 11/20/20 11/20/20 19:57 14:16 12:58 WBC RBC Hgb Hct POC Hct 23 L MCHC RDW MPV Neut % (Auto) Lymph % (Auto) Lymph # (Auto) Absolute Neutrophils POC PT PT POC INR INR Carbon Dioxide 31 H POC Total CO2 32 H POC BUN 23 H Glucose 120 H POC Glucose 118 H Calcium 7.9 L 8.3 L POC WB Ioniz Calcium 1.07 L AST 33 H ALT Lactate Dehydrogenase Total Protein 5.0 L Albumin 2.1 L Albumin/Globulin Ratio 0.7 L 12/21/20 12/21/20 12/21/20 12:46 12:45 12:45 WBC 13.1 H RBC 1.51 L Hgb 4.5 L* Hct 14.6 L* POC Hct < 15 L* MCHC 30.8 L RDW 15.0 H MPV 11.6 H Neut % (Auto) 82.8 H Lymph % (Auto) 10.2 L Lymph # (Auto) 1.33 L Absolute Neutrophils 10.84 H POC PT 19.1 H PT 24.1 H POC INR 1.6 H INR 2.1 H Carbon Dioxide POC Total CO2 32 H POC BUN 23 H Glucose POC Glucose 119 H Calcium POC WB Ioniz Calcium AST ALT Lactate Dehydrogenase Total Protein Albumin Albumin/Globulin Ratio Meds: Medications Acetaminophen (Tylenol) 650 mg PO Q6HP PRN PRN Reason: PAIN/FEVER > 101 Albuterol/Ipratropium (Duoneb) 3 ml NEB Q4HP PRN PRN Reason: Shortness Of Breath Carvedilol (Coreg) 3.125 mg PO BIDCC [facility] Sodium Chloride (Sodium Chloride 0.9%) 250 mls @ 20 mls/hr IV .[id number] [facility] Stop: 11/21/20 08:59 Last Admin: 11/20/20 23:13 Dose: Not Given Documented by: Potassium Chloride 40 meq/ (Dextrose) 520 mls @ 130 mls/hr IV UD PRN PRN Reason: Potassium < 3 Magnesium Sulfate (Magnesium Sulfate) 2 gm in 50 mls @ 50 mls/hr IV UD PRN PRN Reason: Magnesium </= 1.6 Sodium Chloride (Sodium Chloride 0.9%) 250 mls @ 20 mls/hr IV .[id number] [facility] Stop: 11/21/20 10:43 Last Admin: 11/20/20 23:17 Dose: Not Given Documented by: Pantoprazole Sodium 80 mg/ (Sodium Chloride) 100 mls @ 10 mls/hr IV Q10H [facility] Last Admin: 11/21/20 00:03 Dose: 8 mg/hr, 10 mls/hr Documented by: Sodium Chloride (Sodium Chloride 0.9%) 250 mls @ 20 mls/hr IV .[id number] [facility] Last Admin: 11/21/20 03:46 Dose: 20 mls/hr Documented by: Ondansetron HCl (Zofran) 4 mg IV Q4HP PRN PRN Reason: Nausea And Vomiting Potassium Chloride (Kdur) 40 meq PO UD PRN PRN Reason: Potssium is 3-3.5 Potassium Chloride (Kdur) 40 meq PO UD PRN PRN Reason: Potassium < 3 Sodium Chloride (Saline Flush) 10 ml IV Q8 [facility] Last Admin: 11/21/20 06:03 Dose: 10 ml Documented by: A/P Narrative A/P Narrative: A: *GI bleed: 2/2 duodenal polypoid mass, s/p EGD (11/20) *Acute blood loss anemia: -4 PRBC (11/20) -stable *Recent aortic dissection and aneurysm repair and renal artery stent: treated at [facility] -case discussed with vascular surgeon from ED -CTA c/a/p intact, no leak or complication *PAF: on eliquis/BB *Left pleural effusion: drained onced at [facility], only blood-tinged at the time *TAVARES: need bipap, working on outpt *COPD: *Tobacco abuse: *HTN: *Obesity: * P: -monitor for further bleeding today and H&H -Holding Eliquis, likely restart in 72 hours -per vascular surgeon, does not need to go back on plavix -Gen Surgeon followin -ppi gtt to bid ppi -cont BB, restart norvasc -nocturnal bipap -pt/ot -Smoking cessation counseling -ppx: SCD full code Time Spent With Patient Time: Total time spent is greater than 50% in coordination of care (as documented) at patient's floor/unit and/or counseling patient: QUALITY VTE Deep Vein Thrombosis/Pulmonary Embolism Present on Admission: No
[2020-11-21 07:49] LABS: INR 1.3 (0.9-1.1); Partial Thromboplastin Time 29.3 sec (20.0-37.0)
--- NOTE | 2020-11-21 07:53 | Operative Note ---
DATE OF OPERATION: 11/20/2020 PREOPERATIVE DIAGNOSIS: Upper GI bleed. POSTOPERATIVE DIAGNOSIS: Upper GI bleed from bleeding duodenal mass. PROCEDURE: EGD, control of duodenal hemorrhage with submucosal injection and endoscopic clip. SURGEON: Zack Santos M.D. COKE DRAWER HAND: None. INDICATIONS: This is a 65-year-old female with a recent diagnosis of atrial fibrillation and endovascularly repaired descending thoracic and suprarenal abdominal aorta dissection who was on Plavix as well as apixaban. Two days before presentation, she developed melanotic stool. She felt progressively worse over the subsequent days and was seen in the Emergency Department where she was presyncopal and had a hemoglobin of 4.5. She was seen to have significant hematemesis and given her ongoing transfusion requirement, the decision was made to emergently bring her to the operating room for an upper GI. FINDINGS: 1. Large amount of blood and adherent clot in the antrum and the duodenum. 2. Actively bleeding polypoid duodenal mass in the first portion of the duodenum. This was biopsied. 3. Adjacent mucosa, adjacent to the mass injected with 30 mL of 1 mg in 10 mL epinephrine. A [employer] clip was applied to the base of the area of active bleeding and there was no bleeding at the end of the case. 4. There were no esophageal varices. DESCRIPTION OF PROCEDURE: The patient was brought to the operating room. She was intubated without incident. An Olympus endoscope was prepared and via a bite guard was passed easily over the tongue and pharyngeal arches into the superior esophagus. Inspecting the esophagus carefully, there was no blood, and there were no esophageal varices identified. The scope was then slowly advanced through the GE junction. Upon entry into the stomach, there was a significant amount of blood. This was suctioned and subsequently irrigated several times to clear the blood. Inspecting the ahuja of the stomach, there did not appear to be active bleeding. We moved progressively. There was a significant amount of clot in the antrum. This was suctioned and irrigated similarly and there were no sites of active bleeding within the antrum identified. The scope was then placed through the pylorus and into the duodenum, where there was a large adherent clot to the wall of the duodenum. With some difficulty, this was suctioned, irrigated and removed, thus revealing a site of active bleeding, which appeared to originate at a polypoid duodenal mass that was perhaps 1-2 cm in size. The mucosa adjacent to this area was then injected with 10 mL of 1:10,000 of epinephrine, which slowed the bleeding. The scope was then advanced into the second portion of the duodenum and the mucosa inspected. There were no additional sites of bleeding and no sites of ulcerations. The scope was then withdrawn to the area of concern. A cold biopsy forceps was used to obtain tissue at a corporate sales representative site on the bleeding mass. Next, a [employer] clip was positioned just at the base of the bleeding mass and deployed without incident. At this point, there was no further blood loss. An additional 20 mL of 1:10,000 of epinephrine was infiltrated in the adjacent mucosa bringing the total to 30 mL. At this point, some additional residual clot was irrigated and evacuated without incident. We then began to carefully inspect the stomach. There appeared to be healthy rugae without evidence of ulceration or gastritis. Retroflexion of the scope showed a Hill grade 1 valve. The scope was then slowly withdrawn through the GE junction and esophagus and no further abnormalities were detected. The patient was then extubated and brought to PACU without incident. Please note that the patient will require repeat endoscopy to evaluate the mass more clearly, once her coagulopathy is reversed and she recovers from this active bleed. Unable to see well with presence of clot, mucosal edema from injection, risk of restarting bleeding with additional maneuvers. ESTIMATED BLOOD LOSS: 15 mL. COMPLICATIONS: None. IMPLANTS: None. SPECIMENS: Biopsy of polypoid duodenal mass in first portion of duodenum. JS:[email or web address] Job ID: [id number] Doc ID: [id number] Zack RODRIGUEZ
[2020-11-21] MEDS ORDERED: CARVEDILOL 3.125 MG TABLET PO SCH ×2 (08:00→17:30)
[2020-11-21] MEDS ORDERED: PANTOPRAZOLE 40 MG PACKET PO SCH (08:30)
[2020-11-21] MEDS ORDERED: amLODIPine 10 MG TABLET PO SCH (09:00)
[2020-11-21] MEDS ORDERED: POTASSIUM CHLORIDE 40 MEQ in DEXTROSE 5% IN WATER 500 ML IV PRN (10:08)
[2020-11-21] MEDS ORDERED: IPRATROPIUM/ALBUTEROL 3 ML AMPUL.NEB NEB PRN (10:08)
[2020-11-21] MEDS ORDERED: GLYCOPYRROLATE 0.2 MG/ML VIAL IV ONE (10:08)
[2020-11-21] MEDS ORDERED: POTASSIUM CHLORIDE 20 MEQ TABLET PO PRN ×2 (10:08)
[2020-11-21] MEDS ORDERED: ONDANSETRON 4 MG/2 ML VIAL IV PRN (10:08)
[2020-11-21] MEDS ORDERED: MAGNESIUM SULFATE 2 GM/50 ML BAG IV PRN (10:08)
[2020-11-21 12:47] LABS: Hematocrit 24.4 % (36.0-48.0); Hemoglobin 7.9 g/dL (12.0-15.0)
--- NOTE | 2020-11-21 13:59 | General Surgery Progress Note ---
SUBJECTIVE Subjective Patient information: Note initiated : 11/21/20 at 1:47 pm Service Date, if different from initiated Date: [] Patient: Lissa Simmons 65 y/o F admitted on 11/20/20 for dark stools, N/V. Chief Complaint: duodenal bleed S: Pt feeling much improved this afternoon, mobilizing with out presyncope. Reports no longer having melanotic stools Review of Hb shows stability since endoscopic control of bleed now at 8.2, coagulopathy on apixaban reversed O: VSS Breathing easily RRR Abd soft, nontender, rotund Hb 8.2, INR 1.3, Cr 0.7 A/P 65 yo woman POD1 after EDG with submucosal injection and endoscopic clip control of duodenal bleeding polypoid mass in the setting of clopidogrel + apixaban after recent endovascular stenting of aorta and R renal artery. Now well without evidence of ongoing bleeding. Agree with holding anticoagulation for 72hrs At 72 hrs can restart anticoagulation for afib and fresh stents - recommend not starting Xa inhibitors but initial BID therapeutic enoxaparin instead due to shorter half life, and partial reversibility. Needs follow up of duodenal biopsy Will likely need repeat endoscopy in ~1-2 weeks time to fully asses and biopsy duodenal mass off anticoagulation once distortion from bleeding and injection have resolved. Discharge on enoxaparin will facilitate this. Consider screening colonoscopy at same time - pt has never had one. Agree with BID PPI Will continue to follow with you. Zack Santos MD, surgery Constitutional Vitals: Vital Signs Temp Pulse Resp BP Pulse Ox 37.3 C H 60 16 104/48 95 11/21/20 13:22 11/21/20 13:22 11/21/20 13:22 11/21/20 13:22 11/21/20 13:22 Period Temp Pulse Resp BP Sys/Brantley Pulse Ox Last 24 Hr 36.3 C-37.3 C 44-80 12-23 78-151/46-113 87-100 Intake and Output 11/20/20 11/21/20 11/21/20 21:59 05:59 13:59 Intake Total 3795 200 701 Output Total 200 Balance 3795 200 501 Weight 90.718 kg Intake & Output: Intake & Output 11/20/20 11/21/20 11/21/20 21:59 05:59 13:59 Intake Total 3795 200 701 Output Total 200 Balance 3795 200 501 Weight 90.718 kg Intake: IV 1120 200 221 Sodium Chloride 0.9% 1,000 ml @ 1000 Wide Open IV BOLUS ONE Rx#: [id number] Sodium Chloride 0.9% 250 ml @ 40 122 20 mls/hr IV .[id number] [facility] Rx#: [id number] Kcentra 1 Unit 2,064 Unit In 80 Emptybag 80 ml @ 500 mls/hr IV ONCE ONE Rx#:[id number] Protonix 80 mg In Sodium 100 99 Chloride 0.9% 100 ml @ 8 MG/HR 10 mls/hr IV Q10H [facility] Rx#: [id number] Oral 480 Blood Product 975 IV - Manual Only 1700 Output: Stool 200 Other: Meal Lunch Percent of Meal Consumed 50% Feeding Ability Independent Urine Appearance Clear Clear Urine Color Dark Yellow Dark Yellow Urine Odor Normal Normal Stool Size Small Small Stool Color Dark Red Blood Black Stool Consistency Watery Watery # Voids 1 # Bowel Movements 1 1 # of times incontinent of 0 Bowels A/P Time Spent With Patient Time: Total time spent is greater than 50% in coordination of care (as d ocumented) at patient's floor/unit and/or counseling patient:
[2020-11-21 17:15] LABS: Hematocrit 28.6 % (36.0-48.0); Hemoglobin 9.4 g/dL (12.0-15.0)
[2020-11-21] MEDS: PANTOPRAZOLE 40 MG PACKET PO SCH (17:19)
[2020-11-21] MEDS ORDERED: HYDROmorphone 0.5 MG/0.5 ML SYRINGE ONE (19:46)
[2020-11-21] MEDS: HYDROmorphone 0.5 MG/0.5 ML SYRINGE IV PRN (19:47)
[2020-11-22] MEDS: ACETAMINOPHEN 325 MG TABLET PO PRN ×3 (01:14→15:36)
[2020-11-22] MEDS: 0.9 % SODIUM CHLORIDE 10 ML SYRINGE IV SCH ×3 (05:50→20:19)
[2020-11-22 06:37] LABS: Basophils # (Auto) 0.03 K/mcL (0.00-0.20); Basophils % (Auto) 0.2 % (0.0-2.0); Eosinophils # (Auto) 0.01 K/mcL (0.00-0.70); Eosinophils % (Auto) 0.1 % (0.0-7.0); Hematocrit 26.6 % (36.0-48.0); Hemoglobin 8.5 g/dL (12.0-15.0); Lymphocytes # (Auto) 1.59 K/mcL (1.50-4.80); Lymphocytes % (Auto) 10.7 % (15.0-49.0); Mean Cell Volume 94.7 fL (80.0-100.0); Mean Platelet Volume 11.1 fL (7.4-10.4); Monocytes # (Auto) 1.46 K/mcL (0.10-0.90); Monocytes % (Auto) 9.9 % (1.0-12.0); Neutrophils % (Auto) 79.1 % (38.0-78.0); Platelet Count 268 K/mcL (140-440); RBC 2.81 M/mcL (4.00-5.20); Red Cell Distribution Width 15.2 % (11.5-14.5); WBC 14.8 K/mcL (4.5-11.0)
[2020-11-22 07:07] LABS: Blood Urea Nitrogen 15 mg/dL (8-23); Calcium 8.1 mg/dL (8.6-10.4); Carbon Dioxide 32 mmol/L (22-30); Chloride 100 mmol/L (96-108); Glomerular Filtration Rate 95; Glucose 128 mg/dL (70-105)
[2020-11-22] MEDS: amLODIPine 10 MG TABLET PO SCH (07:57)
[2020-11-22] MEDS: PANTOPRAZOLE 40 MG PACKET PO SCH ×2 (07:58→16:30)
[2020-11-22] MEDS: ENOXAPARIN 100 MG/ML SYRINGE SQ SCH ×2 (08:06→20:18)
[2020-11-22] MEDS: CARVEDILOL 3.125 MG TABLET PO SCH ×2 (09:55→16:30)
--- NOTE | 2020-11-22 11:43 | Surgical Pathology Report ---
Histology Microscopic Diagnosis Specimen A- DUODENUM, MASS, BIOPSY: -- BLOOD AND FIBRIN WITH ASSOCIATED ACUTE AND CHRONIC INFLAMMATION; SEE COMMENT. -- NO INTACT DUODENAL MUCOSA OR INTESTINAL TISSUE IDENTIFIED. (DMT:adj) Comments The clinical impression of a mass is noted. The specimen consists entirely of blood and fibrin with associated acute and chronic inflammation suggestive of organizing hemorrhage. No associated mucosal, submucosal or mural duodenal tissue is present for examination. No features of a malignancy are seen. Given the clinical impression of a mass, if clinical concern for malignancy is present, than additional sampling is suggested. Clinical History Duodenal mass. Gross Description Received in formalin labeled duodenal mass, is a brown tissue fragment 0.4 cm. Entirely submitted - one cassette. (SCB:sln) Electronically Signed Eddie Dominguez MD, FCAP Electronically Signed 11/22/2020 11:42 AM
[2020-11-22] MEDS ORDERED: ASPIRIN 81 MG TAB.CHEW CHEWED ONE (12:50)
--- NOTE | 2020-11-22 12:59 | General Surgery Progress Note ---
SUBJECTIVE Subjective Patient information: Note initiated : 11/22/20 at 12:54 pm Service Date, if different from initiated Date: [] Patient: Lissa Simmons 65 y/o F admitted on 11/20/20 for dark stools, N/V. Chief Complaint: Chief Complaint: duodenal bleed S: Pt feeling fatigued but well. now tolerating a diet without difficulty, no clinical or lab evidence of bleeding O: VSS Breathing easily RRR Abd soft, nontender, rotund Hct 26 A/P 65 yo woman POD2 after EDG with submucosal injection and endoscopic clip control of duodenal bleeding polypoid mass in the setting of clopidogrel + apixaban after recent endovascular stenting of aorta and R renal artery. Now well without evidence of ongoing bleeding. Pathology of bleeding mass shows only thrombus and fibrin - non-diagnostic. Agree with holding anticoagulation for 72hrs - can start tomorrow for afib and fresh stents - recommend not starting Xa inhibitors but initial BID therapeutic enoxaparin instead due to shorter half life, and partial reversibility. Will need repeat endoscopy in ~2 weeks time to fully asses and biopsy duodenal mass off anticoagulation once distortion from bleeding and injection have resolved. Discharge on enoxaparin will facilitate this. Will Consider screening colonoscopy at same time - pt has never had one. Agree with BID PPI I ordered at 1x dose of 81mg of ASA, this to to avoid renal stent thrombosis until anticoagulation tomorrow. The bleeding risk of low dose asa is minimal. General surgery will sign off Please have pt follow up in clinic in 1 week or so after admission to facilitate future endoscopy. Zack Santos MD, surgery Constitutional Vitals: Vital Signs Temp Pulse Resp BP Pulse Ox 36.3 C 54 L 18 113/50 95 11/22/20 08:00 11/22/20 08:00 11/22/20 08:00 11/22/20 08:00 11/22/20 08:00 Period Temp Pulse Resp BP Sys/Brantley Pulse Ox Last 24 Hr 36.3 C-37.4 C 53-72 16-20 104-142/46-61 93-99 Intake and Output 11/21/20 11/22/20 11/22/20 21:59 05:59 13:59 Intake Total 960 480 260 Output Total 300 Balance 960 180 260 Weight 104.19 kg Intake & Output: Intake & Output 11/21/20 11/22/20 11/22/20 21:59 05:59 13:59 Intake Total 960 480 260 Output Total 300 Balance 960 180 260 Weight 104.19 kg Intake: Oral 460 480 260 Blood Product 500 Output: Void Amount 300 Other: Meal Dinner Lunch Percent of Meal Consumed 100% 75% Feeding Ability Independent Urine Appearance Clear Clear Clear Urine Color Dark Yellow Dark Yellow Dark Yellow Urine Odor Normal Normal Normal Stool Size Small Small Small Stool Color Black Black Black Stool Consistency Soft Soft Soft Loose Loose Loose # Voids 1 # Bowel Movements 1 # of times incontinent of 1 Bowels A/P Time Spent With Patient Time: Total time spent is greater than 50% in coordination of care (as documented) at patient's floor/unit and/or counseling patient:
[2020-11-22] MEDS: HYDROmorphone 0.5 MG/0.5 ML SYRINGE IV PRN ×2 (19:20→23:26)
--- NOTE | 2020-11-22 22:02 | Internal Med Progress Note ---
SUBJECTIVE Subjective Patient information: Note initiated : 11/22/20 at 9:54 pm Service Date, if different from initiated Date: [] Patient: Lissa Simmons a 65 y/o F admitted on 11/20/20 for dark stools, N/V. Chief Complaint: [] Interval history: History of present illness: Ms. Simmons is a 65 year old F Presents the ED with bloody stools weak lightheaded. Patient's history is notable for a type B aortic dissection and was admitted to [place] on November 03. She was found during that to have new onset A. fib RVR and was started on AV nikhil blockers as well as Eliquis. She was discharged on the and then presented. To [facility] on for left upper quadrant pain and CT imaging revealed a [place] B descending thoracic aortic dissection and aneurysm without rupture. She was flown back up to [place] she received an endovascular repair As well as a renal artery stent and was started on Plavix. Did develop a pleural effusion on the left which was drained at a prior from her discharge at [place] and was shown to be just blood-tinged. Discharge on Friday the . She was also evaluated for obstructive sleep apnea and also started on inhalers for COPD. She says of the weekend she was doing fine and woke up feeling okay today, Friday. However she started having dark stools 3-4 and then gradually became sick lightheaded and significantly weak. Presenting in the ED her blood pressure systolic was 92/50. She had a hemoglobin of 4.5. She had guaiac positive stools. She was given 2 units of O- blood, and currently receiving third unit after type and cross. CTA of the chest abdomen pelvis revealed intact surgical repairs of dissection. No leaking. Case discussed with vascular surgeon who stated the Plavix was started after the renal stent and if she needs to go back on anticoagulation for the A. fib, Eliquis will be fine alone without Plavix. Case discussed with general surgeon who performed endoscopy upper and lower in the morning. 11/21 Feeling less weak today. Patient had EGD with a polypoid mass found in the duodenum which was treated and clipped. H&H stable. 11/22 Patient had a small amount of black stool last night. Otherwise she does not have any complaints. She is now on 4 L. Patient has been on home oxygen over the past month Heart rate 53. I would like to continue low dose carvedilol since she has a atrial fibrillation. hemoglobin 8.5, Review of Systems: denies headache/fever/chills/nausea/vomiting/chest or abdominal pain/cough/dyspnea. Otherwise see above. Constitutional Vitals: Vital Signs Temp Pulse Resp BP Pulse Ox 97.9 F 56 L 24 H 122/63 97 11/22/20 18:47 11/22/20 18:47 11/22/20 18:47 11/22/20 18:47 11/22/20 18:47 Period Temp Pulse Resp BP Sys/Brantley Pulse Ox Last 24 Hr 97.3 F-98.5 F 53-56 18-24 110-153/49-67 94-99 Intake and Output 11/22/20 11/22/20 11/22/20 05:59 13:59 21:59 Intake Total 480 260 180 Output Total 300 Balance 180 260 180 Weight 103.782 kg Patient Weight 11/23/20 05:59 Weight 103.782 kg Intake & Output: Intake & Output 11/22/20 11/22/20 11/22/20 05:59 13:59 21:59 Intake Total 480 260 180 Output Total 300 Balance 180 260 180 Weight 103.782 kg Intake: Oral 480 260 180 Output: Void Amount 300 Other: Meal Lunch Dinner Percent of Meal Consumed 75% 50% Feeding Ability Independent Independent Urine Appearance Clear Clear Urine Color Dark Yellow Dark Yellow Urine Odor Normal Normal Stool Size Small Small Stool Color Black Black Stool Consistency Soft Soft Loose Loose # Bowel Movements 1 # of times incontinent of 1 Bowels Additional findings Additional findings: General: Alert, Awake, No acute Distress, obese Eyes/N/T: EOMI, Head/Neck: neck supple, CV: RRR, No murmurs, Pulm: Clear b/l, no wheezing/rhonchi/rales Abd: soft, nontender, +BS x4 Ext: no clubbing/cyanosis, b/l LE 1+ Neuro: Alert, no focal deficits, moves all extremities, Skin: warm/dry OBJ DATA Labs CBC & Chem 7: 11/22/20 05:42 11/22/20 05:42 Labs: Abnormal Lab Results 11/22/20 11/22/20 11/21/20 05:42 05:42 16:18 WBC 14.8 H RBC 2.81 L Hgb 8.5 L 9.4 L Hct 26.6 L 28.6 L POC Hct MCHC RDW 15.2 H MPV 11.1 H Neut % (Auto) 79.1 H Lymph % (Auto) 10.7 L Lymph # (Auto) [place] # (Auto) 1.46 H Absolute Neutrophils 11.72 H POC PT PT POC INR INR Carbon Dioxide 32 H POC Total CO2 Anion Gap 6.0 L POC BUN Glucose 128 H POC Glucose Calcium 8.1 L POC WB Ioniz Calcium AST ALT Lactate Dehydrogenase Total Protein Albumin Albumin/Globulin Ratio 11/21/20 11/21/20 11/21/20 07:02 05:02 05:02 WBC RBC Hgb 7.9 L Hct 24.4 L POC Hct MCHC RDW MPV Neut % (Auto) Lymph % (Auto) Lymph # (Auto) [place] # (Auto) Absolute Neutrophils POC PT PT 17.0 H POC INR INR 1.3 H Carbon Dioxide POC Total CO2 Anion Gap POC BUN Glucose 174 H POC Glucose Calcium 7.9 L POC WB Ioniz Calcium AST 67 H ALT 65 H Lactate Dehydrogenase 315 H Total Protein 5.4 L Albumin 2.4 L Albumin/Globulin Ratio 0.8 L 11/21/20 11/21/20 11/20/20 05:02 03:00 23:00 WBC 17.6 H RBC 2.71 L Hgb 8.2 L 8.3 L 8.4 L Hct 25.3 L 25.4 L POC Hct MCHC RDW 15.5 H MPV 11.4 H Neut % (Auto) 94.1 H Lymph % (Auto) 4.2 L Lymph # (Auto) 0.74 L [place] # (Auto) Absolute Neutrophils 16.60 H POC PT PT POC INR INR Carbon Dioxide POC Total CO2 Anion Gap POC BUN Glucose POC Glucose Calcium POC WB Ioniz Calcium AST ALT Lactate Dehydrogenase Total Protein Albumin Albumin/Globulin Ratio 11/20/20 11/20/20 11/20/20 23:00 23:00 23:00 WBC RBC Hgb Hct 25.6 L POC Hct MCHC RDW MPV Neut % (Auto) Lymph % (Auto) Lymph # (Auto) [place] # (Auto) Absolute Neutrophils POC PT PT 17.1 H POC INR INR 1.4 H Carbon Dioxide POC Total CO2 Anion Gap POC BUN Glucose POC Glucose Calcium 7.7 L POC WB Ioniz Calcium AST ALT Lactate Dehydrogenase Total Protein Albumin Albumin/Globulin Ratio 11/20/20 11/20/20 11/20/20 19:58 19:58 19:57 WBC RBC Hgb Hct 24.8 L POC Hct MCHC RDW MPV Neut % (Auto) Lymph % (Auto) Lymph # (Auto) [place] # (Auto) Absolute Neutrophils POC PT PT 18.1 H POC INR INR 1.5 H Carbon Dioxide POC Total CO2 Anion Gap POC BUN Glucose POC Glucose Calcium 7.9 L POC WB Ioniz Calcium AST ALT Lactate Dehydrogenase Total Protein Albumin Albumin/Globulin Ratio 11/20/20 11/20/20 11/20/20 14:16 12:58 12:46 WBC RBC Hgb Hct POC Hct 23 L < 15 L* MCHC RDW MPV Neut % (Auto) Lymph % (Auto) Lymph # (Auto) [place] # (Auto) Absolute Neutrophils POC PT PT POC INR INR Carbon Dioxide 31 H POC Total CO2 32 H 32 H Anion Gap POC BUN 23 H 23 H Glucose 120 H POC Glucose 118 H 119 H Calcium 8.3 L POC WB Ioniz Calcium 1.07 L AST 33 H ALT Lactate Dehydrogenase Total Protein 5.0 L Albumin 2.1 L Albumin/Globulin Ratio 0.7 L 11/20/20 11/20/20 12:45 12:45 WBC 13.1 H RBC 1.51 L Hgb 4.5 L* Hct 14.6 L* POC Hct MCHC 30.8 L RDW 15.0 H MPV 11.6 H Neut % (Auto) 82.8 H Lymph % (Auto) 10.2 L Lymph # (Auto) 1.33 L [place] # (Auto) Absolute Neutrophils 10.84 H POC PT 19.1 H PT 24.1 H POC INR 1.6 H INR 2.1 H Carbon Dioxide POC Total CO2 Anion Gap POC BUN Glucose POC Glucose Calcium POC WB Ioniz Calcium AST ALT Lactate Dehydrogenase Total Protein Albumin Albumin/Globulin Ratio Meds: Medications Acetaminophen (Tylenol) 650 mg PO Q6HP PRN PRN Reason: PAIN/FEVER > 101 Last Admin: 11/22/20 15:36 Dose: 650 mg Documented by: Albuterol/Ipratropium (Duoneb) 3 ml NEB Q4HP PRN PRN Reason: Shortness Of Breath Amlodipine Besylate (Norvasc) 10 mg PO QDAY [facility] Last Admin: 11/22/20 07:57 Dose: 10 mg Documented by: Carvedilol (Coreg) 3.125 mg PO BIDCC [facility] Last Admin: 11/22/20 16:30 Dose: 3.125 mg Documented by: Enoxaparin Sodium (Lovenox) 100 mg SQ BID [facility] Last Admin: 11/22/20 20:18 Dose: 100 mg Documented by: Hydromorphone HCl (Dilaudid) 0.5 mg IV Q4HP PRN; Protocol PRN Reason: Per Pain Protocol Last Admin: 11/22/20 19:20 Dose: 0.5 mg Documented by: Magnesium Sulfate (Magnesium Sulfate) 2 gm in 50 mls @ 50 mls/hr IV UD PRN PRN Reason: Magnesium </= 1.6 Potassium Chloride 40 meq/ (Dextrose) 520 mls @ 130 mls/hr IV UD PRN PRN Reason: Potassium < 3 Ondansetron HCl (Zofran) 4 mg IV Q4HP PRN PRN Reason: Nausea And Vomiting Pantoprazole Sodium (Protonix) 40 mg PO BIDAC [facility] Last Admin: 11/22/20 16:30 Dose: 40 mg Documented by: Potassium Chloride (Kdur) 40 meq PO UD PRN PRN Reason: Potssium is 3-3.5 Potassium Chloride (Kdur) 40 meq PO UD PRN PRN Reason: Potassium < 3 Sodium Chloride (Saline Flush) 10 ml IV Q8 [facility] Last Admin: 11/22/20 20:19 Dose: 10 ml Documented by: A/P Narrative A/P Narrative: 1. GI bleed: 2/2 duodenal polypoid mass, s/p EGD (11/20) 2. Acute blood loss anemia: -4 PRBC (11/20) -stable 3. Recent aortic dissection and aneurysm repair and renal artery stent: treated at [place] -case discussed with vascular surgeon from ED -CTA c/a/p intact, no leak or complication 4. PAF: on eliquis/BB. As per GS Dr. Santos, Eliquis is on hold. Lovenox 100mg sc bid was started. 5. Left pleural effusion: drained onced at [facility], only blood-tinged at the time 6. TAVARES: need bipap, working on outpt 7. COPD: 8. Tobacco abuse: 9. HTN: 10. Obesity: P: -monitor for further bleeding today and H&H -per vascular surgeon, does not need to go back on plavix -Gen Surgeon followin -ppi gtt to bid ppi -cont BB, restart norvasc -nocturnal bipap -pt/ot -Smoking cessation counseling -ppx: SCD full code Deposition: will observe for one more day today. Will be probably discharged tomorrow with home health. Patient needs to be referred to sleep study for CPAP/BiPAP. Has been on home oxygen. Time Spent With Patient Time: Total time spent is greater than 50% in coordination of care (as documented) at patient's floor/unit and/or counseling patient: QUALITY VTE Deep Vein Thrombosis/Pulmonary Embolism Present on Admission: No
[2020-11-23] MEDS: HYDROmorphone 0.5 MG/0.5 ML SYRINGE IV PRN (04:58)
[2020-11-23] MEDS: 0.9 % SODIUM CHLORIDE 10 ML SYRINGE IV SCH (04:58)
--- NOTE | 2020-11-23 06:41 | Ultrasound Report ---
CLINICAL INFORMATION: nodule COMPARISON: Chest CT 11/03/2020 FINDINGS: The thyroid is normal in size: The right lobe is 5.2 x 2.1 cm and the left lobe is 5 x 1.6 cm. Bilateral thyroid nodules appreciated: Right lobe: Inferior pole 1.7 x 1.6 cm spongiform hyperechoic smooth borders with a few calcifications and wider than tall TR 3 Isthmus 0.9 x 0.6 cm spongiform hyperechoic smooth border few punctate calcifications and wider than tall TR 3 Left lobe: 1.5 x 1.9 cm densely calcified nodule in the inferior lobe IMPRESSION: Nodules in both inferior thyroid lobes and the isthmus are more likely benign than malignant. Suggest six month follow-up thyroid ultrasound for reassessment Interpreted and Authenticated by: Pato Murphy 11/23/20
[2020-11-23] MEDS: PANTOPRAZOLE 40 MG PACKET PO SCH (07:06)
[2020-11-23] MEDS: ENOXAPARIN 100 MG/ML SYRINGE SQ SCH (08:33)
[2020-11-23] MEDS: CARVEDILOL 3.125 MG TABLET PO SCH (08:33)
[2020-11-23] MEDS: amLODIPine 10 MG TABLET PO SCH (08:33)
[2020-11-23 09:18] LABS: Basophils # (Auto) 0.03 K/mcL (0.00-0.20); Basophils % (Auto) 0.3 % (0.0-2.0); Eosinophils # (Auto) 0.03 K/mcL (0.00-0.70); Eosinophils % (Auto) 0.3 % (0.0-7.0); Hematocrit 27.4 % (36.0-48.0); Hemoglobin 8.6 g/dL (12.0-15.0); Lymphocytes # (Auto) 1.19 K/mcL (1.50-4.80); Lymphocytes % (Auto) 9.9 % (15.0-49.0); Mean Cell Volume 97.5 fL (80.0-100.0); Mean Corpuscular HGB Conc 31.4 g/dL (31.0-36.0); Mean Platelet Volume 10.7 fL (7.4-10.4); Monocytes # (Auto) 1.21 K/mcL (0.10-0.90); Monocytes % (Auto) 10.1 % (1.0-12.0); Neutrophils % (Auto) 79.4 % (38.0-78.0); Platelet Count 288 K/mcL (140-440); RBC 2.81 M/mcL (4.00-5.20); Red Cell Distribution Width 15.2 % (11.5-14.5)
[2020-11-23 09:37] LABS: ALT/SGPT 52 U/L (<40); AST/SGOT 28 U/L (<32); Albumin 2.6 gm/dL (3.2-5.2); Albumin/Globulin Ratio 0.8 (1.0-2.3); Alkaline Phosphatase 60 U/L (39-117); Bilirubin,Total 0.5 mg/dL (0.1-1.0); Blood Urea Nitrogen 10 mg/dL (8-23); Calcium 8.4 mg/dL (8.6-10.4); Carbon Dioxide 33 mmol/L (22-30); Chloride 99 mmol/L (96-108); Globulin 3.1 gm/dL (2.2-3.7); Glomerular Filtration Rate 95; Glucose 143 mg/dL (70-105)
[2020-11-23] MEDS: ACETAMINOPHEN 325 MG TABLET PO PRN (11:27)
--- NOTE | 2020-11-23 12:27 | Discharge Summary ---
Discharge Provider Provider Patient information: Note initiated : 11/23/20 at 12:26 pm Service Date, if different from initiated Date: [] Patient: Lissa Simmons 65 y/o F admitted on 11/20/20 for dark stools, N/V. Chief Complaint: [] Date of admission: 11/20/20 22:07 Discharge date: 11/23/20 Primary care physician: KIESHA Polanco Consults: 11/20/20 Consult to Physician [CONS] Stat Comment: Consulting Provider: Kavin Weston Reason For Exam: Physician to Consult Consult to Physician [CONS] Stat Comment: Consulting Provider: Zack Santos Reason For Exam: Physician to Consult Discharge Meds Discharge Medications Home Medications amlodipine 10 mg PO QDAY 11/20/20 [History Confirmed 11/20/20 Last Taken Unknown] carvedilol 3.125 mg PO BID 11/20/20 [History Confirmed 11/20/20 Last Taken Unkno wn] lisinopril 10 mg PO QDAY 11/20/20 [History Confirmed 11/20/20 Last Taken Unknown] enoxaparin 100 mg SQ BID #10 ml 11/23/20 [Rx Last Taken Unknown] pantoprazole [Protonix] 40 mg PO BIDAC #60 ea 11/23/20 [Rx Last Taken Unknown] COURSE Hospital Course Hospital course: Patient's history is notable for a type B aortic dissection and was admitted to [facility] on November 03. She was found during that to have new onset A. fib RVR and was started on AV nikhil blockers as well as Eliquis. She was discharged on the and then presented. To [facility] on for left upper quadrant pain and CT imaging revealed a [place] B descending thoracic aortic dissection and aneurysm without rupture. She was flown back up to [facility] she received an endovascular repair As well as a renal artery stent and was started on Plavix. Did develop a pleural effusion on the left which was drained at a prior from her discharge at [facility] and was shown to be just blood-tinged. Discharge on Friday the . She was also evaluated for obstructive sleep apnea and also started on inhalers for COPD. She says of the weekend she was doing fine and woke up feeling okay today, Friday. However she started having dark stools 3-4 and then gradually became sick lightheaded and significantly weak. Presenting in the ED her blood pressure systolic was 92/50. She had a hemoglobin of 4.5. She had guaiac positive stools. She was given 2 units of O- blood, and currently receiving third unit after type and cross. CTA of the chest abdomen pelvis revealed intact surgical repairs of dissection. No leaking. Case discussed with vascular surgeon who stated the Plavix was started after the renal stent and if she needs to go back on anticoagulation for the A. fib, Eliquis will be fine alone without Plavix. Case discussed with general surgeon who performed endoscopy upper and lower in the morning. 1. GI bleed: 2/ duodenal polypoid mass, s/p EGD (11/20) -f/u with Dr. Larios in 2 weeks. 2. Acute blood loss anemia: -4 PRBC (11/20) -stable -HB 8.6 today -PPI BID 3. Recent aortic dissection and aneurysm repair and renal artery stent: treated at [facility] -case discussed with vascular surgeon from ED -CTA c/a/p intact, no leak or complication 4. PAF: on eliquis/BB. As per GS Dr. Santos, Eliquis is on hold. Lovenox 100mg sc bid was started. 5. Left pleural effusion: [place] [facility] [place] blood-tinged at the time 6. TAVARES: need bipap, working on outpt 7. COPD: 8. Tobacco abuse: 9. HTN: 10. Obesity: P: -monitor for further bleeding today and H&H -per vascular surgeon, does not need to go back on plavix -Gen Surgeon followin -ppi gtt to bid ppi -cont BB, restart norvasc -nocturnal bipap -pt/ot -Smoking cessation counseling -ppx: SCD full code Interval history: History of present illness: Ms. Simmons is a 65 year old F Presents the ED with bloody stools weak lightheaded. 11/21 Feeling less weak today. Patient had EGD with a polypoid mass found in the duodenum which was treated and clipped. H&H stable. 11/22 Patient had a small amount of black stool last night. Otherwise she does not have any complaints. She is now on 4 L. Patient has been on home oxygen over the past month Heart rate 53. I would like to continue low dose carvedilol since she has a atrial fibrillation. hemoglobin 8.5, 11/23 Today patient does not have any complaints. No bleeding. Vital signs are stable and acceptable. She is on 2 L. She really wants to go home today. She will be discharged home with home health. Continue oxygen. Continue PT OT. She needs to see PCP in 3 days, sleeping medcine within one week, f/u with Dr. Larios in 2 weeks. Repeat Repeat CBC and CMP in 3 days. Eliquis and plavix are on hold (as per Dr. Weston, he no longer need plavix. According to Dr. Larios, lovenox 100mg sc bid). stop lovxnox and go to ER immediately if you have bleeding. Call PCP for medical issues. Discharge diagnosis: GI bleeding Time Spent with Patient Time attestation: Total time spent providing and/or coordinating discharge services: EXAM Constitutional Vitals: Temp Pulse Resp BP Pulse Ox 98.9 F 66 20 141/64 90 11/23/20 08:00 11/23/20 08:00 11/23/20 08:00 11/23/20 08:00 11/23/20 08:00 Additional findings Additional findings: General: Alert, Awake, No acute Distress, obese Eyes/N/T: EOMI, no conjunctival injection Head/Neck: neck supple, CV: RRR, No murmurs, Pulm: Clear b/l, no wheezing/rhonchi/rales Abd: soft, nontender, +BS x4 Ext: no clubbing/cyanosis, b/l LE 1+ Neuro: Alert, no focal deficits, moves all extremities, Skin: warm/dry Discharge Data Data Completed and Pending Labs on day of discharge: Labs from last 24 hours 11/23/20 11/23/20 08:34 08:34 WBC 12.0 H RBC 2.81 L Hgb 8.6 L Hct 27.4 L MCV 97.5 MCH 30.6 MCHC 31.4 RDW 15.2 H Plt Count 288 MPV 10.7 H Neut % (Auto) 79.4 H Lymph % (Auto) 9.9 L Randolph % (Auto) 10.1 Eos % (Auto) 0.3 Baso % (Auto) 0.3 Lymph # (Auto) 1.19 L Randolph # (Auto) 1.21 H Eos # (Auto) 0.03 Baso # (Auto) 0.03 Absolute Neutrophils 9.52 H Sodium 137 Potassium 4.0 Chloride 99 Carbon Dioxide 33 H Anion Gap 5.0 L BUN 10 Creatinine 0.6 GFR Calculation 95 Glucose 143 H Calcium 8.4 L Total Bilirubin 0.5 AST 28 ALT 52 H Alkaline Phosphatase 60 Total Protein 5.7 L Albumin 2.6 L Globulin 3.1 Albumin/Globulin Ratio 0.8 L Discharge Plan Patient/Caregiver Discharge Instructions Activity: increase activity as tolerated Diet: Regular Diet Activity Restrictions/Additional Instructions: PCP in 3 days, sleeping medcine within one week, f/u with Dr. Larios in 2 weeks. Repeat CBC and CMP Prescriptions: New enoxaparin 100 mg/mL Syringe 100 mg SQ BID Qty: 10 RF: 0 pantoprazole [Protonix] [address] For Susp In Packet 40 mg PO BIDAC Qty: 60 RF: 0 Continued carvedilol 3.125 mg Tablet 3.125 mg PO BID RF: 0 amlodipine 10 mg Tablet 10 mg PO QDAY RF: 0 lisinopril 10 mg Tablet 10 mg PO QDAY RF: 0 Discontinued clopidogrel 75 mg Tablet 75 mg PO QDAY RF: 0 amoxicillin-pot clavulanate [Augmentin] 875-125 mg Tablet 1 tab PO BID RF: 0 apixaban 5 mg Tablet 5 mg PO BID RF: 0 Other Ambulatory Orders: Complete Blood Count (Routine) Timeframe: 3 Days Facility: [facility] - Location: Laboratory Ordered By: Leah Fuentes Comprehensive Metabolic Panel (Routine) Timeframe: 3 Days Facility: [facility] - Location: Laboratory Ordered By: Leah Fuentes Follow Up Plan Follow up with: Unknown [Outside] (PCP in 3 days, sleeping medcine within one week, f/u with Dr. Larios in 2 weeks. Repeat CBC and CMP) Zack Santos MD [Physician] - 11/30/20 1:00 pm Patient Disposition: Home Health Service Prognosis: Serious QUALITY VTE Deep Vein Thrombosis/Pulmonary Embolism Present on Admission: No
== END 2020-11-23 14:00 | disposition home health service (06) | DRG 813 ==
LOC: ED 12:25 → SUR 20:10 → ICU 22:07 → MEDSUR 11-21 12:45
PROVIDERS: ADMIT Internal Medicine; ATTEND Internal Medicine